=== PATIENT | male | born 1975 | race Caucasian/White ===

== ENCOUNTER 2017-07-20 08:33 | Emergency (ER) | payer SELFPAY ==
[~2017-07-20] VITALS: Ht 177.8 cm; Wt 72.0 kg
[2017-07-20 08:42] VITALS: BP 125/81; PULSE 85; RESP 17; TEMP 97.5; O2SAT 100
[2017-07-20 08:55] VITALS: BP 125/88; PULSE 68; RESP 19; O2SAT 100
[2017-07-20] MEDS ORDERED: NAPROXEN 500 MG TAB PO ONE (09:15)
--- NOTE | 2017-07-20 10:05 | RADRPT ---
EXAM DATE/TIME: 07/20/2017 09:24 [facility] COMPARISON: No previous studies available for comparison. INDICATIONS : Fell off 12 foot ladder yesterday RADIATION DOSE: 35.82 CTDIvol (mGy) MEDICAL HISTORY : None SURGICAL HISTORY : None. ENCOUNTER: Initial ACUITY: 1 day PAIN SCALE: 0/10 LOCATION: cranial TECHNIQUE: Multiple contiguous axial images were obtained of the head. Using automated exposure control and adj ustment of the mA and/or kV according to patient size, radiation dose was kept as low as reasonably a chievable to obtain optimal diagnostic quality images. DICOM format image data is available electro nically for review and comparison. FINDINGS: CEREBRUM: The ventricles are normal for age. No evidence of midline shift, mass lesion, hemorrhage or acute in farction. No extra-axial fluid collections are seen. POSTERIOR FOSSA: The cerebellum and brainstem are intact. The 4th ventricle is midline. The cerebellopontine angle i s unremarkable. EXTRACRANIAL: The visualized portion of the orbits is intact. SKULL: The calvaria is intact. No evidence of skull fracture. CONCLUSION: Negative for acute traumatic injury Arnie Ruano MD FACR on July 20, 2017 at 10:02 Board Certified Radiologist. This report was verified electronically.
--- NOTE | 2017-07-20 10:06 | RADRPT ---
EXAM DATE/TIME: 07/20/2017 09:36 [facility] COMPARISON: No previous studies available for comparison. INDICATIONS : Lower back pain, fall. MEDICAL HISTORY : None. SURGICAL HISTORY : None. ENCOUNTER: Initial ACUITY: 3 days PAIN SCORE: 9/10 LOCATION: Right lower back FINDINGS: There are five non-rib bearing vertebral bodies. The vertebral bodies are in normal alignment withou t evidence of subluxation or scoliosis. The disc spaces are maintained. The posterior elements are intact without evidence of spondylolysis. The pedicles are intact. Bony mineralization is normal. No fracture is identified. CONCLUSION: Negative for acute process Arnie Ruano MD FACR on July 20, 2017 at 10:03 Board Certified Radiologist. This report was verified electronically.
--- NOTE | 2017-07-20 10:08 | RADRPT ---
EXAM DATE/TIME: 07/20/2017 09:42 [facility] COMPARISON: No previous studies available for comparison. INDICATIONS : Right leg pain, fall. MEDICAL HISTORY : None. SURGICAL HISTORY : None. ENCOUNTER: Initial ACUITY: 2 days PAIN SCORE: 7/10 LOCATION: Right middle leg FINDINGS: Two view examination of the right tibia demonstrates no evidence of fracture or dislocation. Bony mi neralization is normal. The soft tissue structures are intact. CONCLUSION: 1. No acute fracture or dislocation. Enrique Estrada MD on July 20, 2017 at 10:04 Board Certified Radiologist. This report was verified electronically.
--- NOTE | 2017-07-20 10:13 | RADRPT ---
EXAM DATE/TIME: 07/20/2017 09:46 [facility] COMPARISON: No previous studies available for comparison. INDICATIONS : Chest pain post fall. MEDICAL HISTORY : None. SURGICAL HISTORY : None. ENCOUNTER: Initial ACUITY: 2 days PAIN SCORE: 5/10 LOCATION: Right lower chest FINDINGS: PA and lateral views of the chest demonstrate the lungs to be symmetrically aerated without evidence of mass, infiltrate or effusion. The cardiomediastinal contours are unremarkable. Osseous structure s are intact. CONCLUSION: No acute disease. Hayder Mac MD on July 20, 2017 at 10:11 Board Certified Radiologist. This report was verified electronically.
[2017-07-20] MEDS ORDERED: NAPR500T2 PO (10:15)
--- NOTE | 2017-07-20 10:16 | PD ---
HPI Chief Complaint: Fall Time Seen by Provider: 08:52 Travel History International Travel<30 days: No Contact w/Intl Traveler<30days: No Traveled to known affect area: No History of Present Illness HPI Is a 42-year-old man presents to the emergency department complaining of pain from fall. He states is about 12 feet in the air, working with drywall, when he fell off the ladder. He states the ladder buckled any sort of fell to the side. Unclear how he landed. This happened yesterday. He has pain in his left arm, right lower extremity, as well as his back. He also states he felt lightheaded in the shower this morning and since then everything he sees is been tented sort of green colored. Little bit of blurry vision. Some headache. No LOC yesterday. History Past Medical History Medical History: Denies Significant Hx Tetanus Vaccination: < 5 Years Influenza Vaccination: No Past Surgical History Surgical History: No Previous Surgery Social History Alcohol Use: Yes (A COUPLE OF BEERS DAILY ) Tobacco Use: Yes (1/2 PPD ) Allergies-Medications (Allergen,Severity, Reaction): Coded Allergies: No Known Allergies (Unverified , 07/20/17) Reported Meds & Prescriptions Reported Meds & Active Scripts Active No Active Prescriptions or Reported Medications Review of Systems Except as stated in HPI: all other systems reviewed are Neg Physical Exam Narrative GENERAL: Well-appearing 42-year-old man, no acute distress. SKIN: Focused skin assessment warm/dry. HEAD: Atraumatic. Normocephalic. EYES: Pupils equal and round. No scleral icterus. No injection or drainage. I do not see any evidence of lens dislocation on funduscopic exam. ENT: No nasal bleeding or discharge. Mucous membranes pink and moist. NECK: Trachea midline. No JVD. CARDIOVASCULAR: Regular rate and rhythm. No murmur appreciated. RESPIRATORY: No accessory muscle use. Clear to auscultation. Breath sounds equal bilaterally. GASTROINTESTINAL: Abdomen soft, non-tender, nondistended. Hepatic and splenic margins not palpable. MUSCULOSKELETAL: No obvious deformities. Little bit of bruising on the left brachium. Full range of motion of the left arm. Some bruising also on the right lower extremity, anterior tib-fib, with a lot of tenderness. There is a little bit of tenderness down near the ankle as well. Is also a little bit of bruising on the back. NEUROLOGICAL: Awake and alert. No obvious cranial nerve deficits. Motor grossly within normal limits. Normal speech. PSYCHIATRIC: Appropriate mood and affect; insight and judgment normal. Data Data Last Documented VS Vital Signs Date Time Temp Pulse Resp B/P (MAP) Pulse Ox O2 Delivery O2 Flow Rate FiO2 07/20/17 08:55 68 19 125/88 (100) 100 Room Air 07/20/17 08:[address] Brain W/O Iv Contrast(Rout) (07/20/17 ) Chest, Pa & Lat (07/20/17 ) Spine, Lumbar Comp W/Obliq (07/20/17 ) Tibia/Fibula (Ap/Lat) (07/20/17 ) Naproxen (Naprosyn) (07/20/17 09:15) MDM Medical Decision Making Medical Screen Exam Complete: Yes Emergency Medical Condition: Yes Interpretation(s) Head CT: Negative for acute traumatic injury. Lumbar spine x-ray: Negative. Tib-fib x-ray: No acute fracture or dislocation. My review of chest x-ray: No definite fractures or pneumothorax. Differential Diagnosis Concussion, head injury, fracture, contusion, other Narrative Course Medical decision making 42-year-old man with fall, some tenderness in the right side. Do not see any definite fractures on the ribs on the right side but he does have a lot of tenderness and occult fracture is possible. No other bony injuries. Recommend supportive treatment. Diagnosis Primary Impression: Multiple contusions Additional Impression: Concussion Patient Instructions: General Instructions Additional Instructions: Take naproxen as needed for pain. Drink plenty fluids stay well-hydrated. You will likely be more sore tomorrow. You may have soreness in your neck, back , arms or legs. You should not have any chest pain, trouble breathing, abdominal pain, worsening headache, numbness or tingling, or difficulty walking. If any of these other symptoms develop he should return to the emergency Department immediately. Follow-up with her primary physician if you're not completely well in 5-7 days. Med/Other Pt SpecificInfo: Prescription(s) given Scripts Naproxen (Naproxen) 500 Mg Tab 500 MG PO BID for 7 Days, #14 TAB 0 Refills Prov: Eduardo Johansen MD 07/20/17 Disposition: 01 DISCHARGE HOME Condition: Stable Eduardo Johansen MD Jul 20, 2017 10:16
== END 2017-07-20 10:52 | disposition home or self-care (01) ==
LOC: NEPE 08:33
DX: S06.0X0A Concussion without loss of consciousness, initial encounter (principal); T14.8XXA Other injury of unspecified body region, initial encounter; W11.XXXA Fall on and from ladder, initial encounter; Y93.H3 Activity, building and construction
CPT/HCPCS: 70450; 71046; 72110; 73590